=== PATIENT | female | born 1945 | race Caucasian/White ===

== ENCOUNTER → 2016-07-27 | Outpatient (CLI) | payer OTHER | LOC: CIMAGING 13:02 | PROVIDERS: ATTEND Family Medicine | DX: R92.0 Mammographic microcalcification found on diagnostic imaging of breast (principal) | CPT/HCPCS: G0206 ==

== ENCOUNTER 2016-11-18 20:20 | Inpatient (IN) | payer OTHER ==
[2016-11-18 20:47] LABS: % IMMATURE GRANULYOCYTES 0.3 % (0.0-1.1); ABSOLUTE IMMATURE GRANULOCYTES 0.05 10^3/uL (0.00-0.10); ADD DIFF? NO; ADD MORPH? NO; ADD SCAN? NO; ATYPICAL LYMPHOCYTE FLAG 0 (0-99); FRAGMENT RBC FLAG 0 (0-99); HEMATOCRIT 41.3 % (38.0-47.0); HEMOGLOBIN 13.9 g/dL (12.6-16.3); LEFT SHIFT FLG 0 (0-99); LIPEMIA HEMOLYSIS FLAG 80 (0-99); MEAN CELL HEMOGLOBIN 30.3 pg (27.9-34.1); MEAN CELL HEMOGLOBIN CONCENTR. 33.7 g/dL (32.4-36.7); MEAN PLATELET VOLUME 9.7 fL (8.7-11.7); PLATELET CLUMPS FLAG 0 (0-99); PLATELET COUNT 293 10^3/uL (150-400); RED BLOOD CELL COUNT 4.59 10^6/uL (4.18-5.33); RED CELL DISTRIBUTION WIDTH 15.1 % (11.5-15.2)
[2016-11-18 20:58] LABS: PROTIME(PATIENT) 12.9 SEC (12.0-15.0)
[2016-11-18 21:04] LABS: APTT 27.1 SEC (23.0-38.0)
[2016-11-18 21:15] LABS: ANION GAP 14 mEq/L (8-16); CARBON DIOXIDE 20 mEq/l (22-31); CHLORIDE 106 mEq/L (97-110); CREATININE 0.9 mg/dL (0.6-1.0); GLOMERULAR FILTRATION RATE > 60; GLUCOSE 111 mg/dL (70-100); POTASSIUM 4.4 mEq/L (3.5-5.2); SODIUM 140 mEq/L (134-144)
[2016-11-18] MEDS ORDERED: PANTOPRAZOLE SODIUM 80 MG in NS 100 ML IV ONE (21:22)
--- NOTE | 2016-11-18 21:40 | EDPHY ---
H & P Stated Complaint: RECTAL BLEEDING/ABD PAIN Time Seen by Provider: 11/18/16 20:28 HPI/ROS: CHIEF COMPLAINT: Bright red blood per rectum History by patient HISTORY OF PRESENT ILLNESS: 71-year-old woman with history of arthritis and valvular heart disease presents complaining of bright red blood per rectum times 24 hours. Patient states that 3 and 4 days ago she had 2 episodes of black tarry stools. These resolved so she did not seek medical attention. However in the past 24 hours she 1st developed bloody diarrhea but now is passing nothing but lea blood. She denies any dizziness or syncope. She has had no chest pain or shortness of breath with this. She does have some crampy abdominal pain when she has the bowel movements and some mild left lower quadrant pain. She has never had anything like this before. She does take frequent Excedrin for her arthritis. REVIEW OF SYSTEMS: As in HPI, and all other systems reviewed and are negative Source: Patient - Personal History Current Tetanus/Diphtheria Vaccine: Yes - Medical/Surgical History Hx Asthma: No Hx Chronic Respiratory Disease: No Hx Diabetes: No Hx Cardiac Disease: No Hx Renal Disease: No Hx Cirrhosis: No Hx Alcoholism: No Hx HIV/AIDS: No Hx Splenectomy or Spleen Trauma: No Other PMH: THYROID, CHOLESTEROL, SKIN CA. PSH: CALVIN KNEE, APPY, ORTH-FEET - Family History Significant Family History: No pertinent family hx - Social History Smoking Status: Former smoker - Physical Exam Exam: General Appearance: Alert, comfortable, well appearing. Eyes: Pupils equal and round no pallor or injection. ENT, Mouth: Mucous membranes moist. Respiratory: Normal, effort, lungs are clear to auscultation. No wheezes, rales or rhonchi. Cardiovascular: Regular rate and rhythm. S1, S2, no murmurs, gallops or rubs appreciated Gastrointestinal: Abdomen is soft and nontender, no masses, bowel sounds normal. Rectal: Positive bright red blood in vault, no tenderness Back: No CVA tenderness, no bony tenderness Neurological: Awake, alert and oriented x 3, no pronator drift, normal gait, no pronator drift Skin: Warm and dry, no rashes. Musculoskeletal: No deformities or tenderness. Extremitie:s full range of motion, no edema Psychiatric: Patient has normal affect, there is no agitation. Constitutional: Initial Vital Signs Temperature (C) 36.5 C 11/18/16 20:25 Heart Rate 89 11/18/16 20:25 Respiratory Rate 16 11/18/16 20:25 Blood Pressure 151/74 H 11/18/16 20:25 O2 Sat (%) 94 11/18/16 20:25 O2 Delivery Mode Room Air Allergies/Adverse Reactions: acetaminophen [From Percocet] Allergy (Verified 11/18/16 20:40) codeine [Codeine] Allergy (Verified 11/18/16 20:40) oxycodone [From Percocet] Allergy (Verified 11/18/16 20:40) Home Medications: Medication Instructions Recorded Levothyroxine [Synthroid 25 mcg 25 mcg PO DAILY 11/06/11 (RX)] Rosuvastatin Calcium 11/18/16 Medical Decision Making ED Course/Re-evaluation: 71-year-old woman presents with GI bleeding and with concern for both upper and lower given her recent episode of melena and now prior red blood per rectum. Patient is hemodynamically stable. She was placed on a playground monitor in 2 peripheral IVs were placed. She was given a dose of IV proton pump inhibitor. Initial hemoglobin is within normal limits. I discussed the case with Dr. Burdick on-call hospitalist at [facility] and the patient will be transferred for further evaluation and treatment. I discussed this plan with the patient and her understand and are agreeable to this plan. - Data Points Laboratory Results: Laboratory Results 11/18/16 20:40 11/18/16 20:40 11/18/16 11/18/16 11/18/16 20:40 20:40 20:40 WBC 14.67 10^3/uL H 10^3/uL (3.80-9.50) RBC 4.59 10^6/uL 10^6/uL (4.18-5.33) Hgb 13.9 g/dL g/dL (12.6-16.3) Hct 41.3 % % (38.0-47.0) MCV 90.0 fL fL (81.5-99.8) MCH 30.3 pg pg (27.9-34.1) MCHC 33.7 g/dL g/dL (32.4-36.7) RDW 15.1 % % (11.5-15.2) Plt Count 293 10^3/uL 10^3/uL (150-400) MPV 9.7 fL fL (8.7-11.7) Neut % (Auto) 74.2 % % (39.3-74.2) Lymph % (Auto) 16.2 % % (15.0-45.0) [place] % (Auto) 7.7 % % (4.5-13.0) Eos % (Auto) 1.2 % % (0.6-7.6) Baso % (Auto) 0.4 % % (0.3-1.7) Nucleat RBC Rel Count 0.0 % % (0.0-0.2) Absolute Neuts (auto) 10.88 10^3/uL H 10^3/uL (1.70-6.50) Absolute Lymphs (auto) 2.37 10^3/uL 10^3/uL (1.00-3.00) Absolute Monos (auto) 1.13 10^3/uL H 10^3/uL (0.30-0.80) Absolute Eos (auto) 0.18 10^3/uL 10^3/uL (0.03-0.40) Absolute Basos (auto) 0.06 10^3/uL 10^3/uL (0.02-0.10) Absolute Nucleated RBC 0.00 10^3/uL 10^3/uL (0-0.01) Immature Gran % 0.3 % % (0.0-1.1) Immature Gran # 0.05 10^3/uL 10^3/uL (0.00-0.10) PT 12.9 SEC SEC (12.0-15.0) INR 1.00 (0.83-1.16) APTT 27.1 SEC SEC (23.0-38.0) Sodium 140 mEq/L mEq/L (134-144) Potassium 4.4 mEq/L mEq/L (3.5-5.2) Chloride 106 mEq/L mEq/L (97-110) Carbon Dioxide 20 mEq/l L mEq/l (22-31) Anion Gap 14 mEq/L mEq/L (8-16) BUN 19 mg/dL mg/dL (7-23) Creatinine 0.9 mg/dL mg/dL (0.6-1.0) Estimated GFR > 60 Glucose 111 mg/dL H mg/dL (70-100) Calcium 9.0 mg/dL mg/dL (8.5-10.4) Medications Given: Pantoprazole Sodium 80 mg/ (Sodium Chloride) 100 mls @ 200 mls/hr IV ONCE ONE Stop: 11/18/16 21:51 Last Admin: 11/18/16 21:33 Dose: 100 mls Departure - Departure Disposition: [facility] Inpatient Acute Clinical Impression: GI bleed Qualifiers: GI bleed type/associated pathology: unspecified gastrointestinal hemorrhage type Qualified Code(s): K92.2 - Gastrointestinal hemorrhage, unspecified Condition: Fair Referrals: Caitlyn Goins MD [Primary Care Provider] - As per Instructions
--- NOTE | 2016-11-18 22:10 | PDGENHP ---
History and Physical - Chief Complaint BRBPR - History of Present Illness 71 yo F w/ hx of hypothyroid, hyperlipidemia, and OA presents to ED with abnormal BMs. Patient states she first noted black, tarry stools a few days prior to admission. Over the last 24 hours, she then began to notice bright red blood per rectum. She describes this as many drops of blood in the toilet bowl, but not a very significant amount. She has also been having lower abdominal cramping, worse in the LLQ. She takes 6 Excedrins daily for relief of OA symptoms. She does have some fatigue but denies dizziness, lightheadedness, syncope. History Information - Allergies/Home Medication List Allergies/Adverse Reactions: acetaminophen [From Percocet] Allergy (Verified 11/18/16 20:40) codeine [Codeine] Allergy (Verified 11/18/16 20:40) oxycodone [From Percocet] Allergy (Verified 11/18/16 20:40) Home Medications: Levothyroxine [Synthroid 25 mcg (RX)] 25 mcg PO DAILY 11/06/11 [Last Taken Unknown] Rosuvastatin Calcium 11/18/16 [Last Taken Unknown] I have personally reviewed and updated: family history, medical history - Past Medical History arthritis Additional medical history: Hypothyroid - Surgical History Reports: no pertinent surgical hx - Family History Positive for: CAD - Social History Smoking Status: Former smoker Drug Use: None Review of Systems Review of Systems: ROS: 10pt was reviewed & negative except for what was stated in HPI & below Physical Exam Physical Exam: Temp Pulse Resp BP Pulse Ox 36.9 C 72 16 122/61 H 94 11/18/16 21:55 11/18/16 21:55 11/18/16 21:55 11/18/16 21:55 11/18/16 21:55 Constitutional: no apparent distress, appears nourished Eyes: PERRL, EOMI Ears, Nose, Mouth, Throat: moist mucous membranes, no oral mucosal ulcers Cardiovascular: regular rate and rhythym, no murmur, rub, or gallop Respiratory: no respiratory distress, clear to auscultation Gastrointestinal: normoactive bowel sounds, tenderness (Mild, LLQ), No guarding , No rebound, No distension Skin: warm, no rashes or abrasions Musculoskeletal: full muscle strength, no muscle tenderness Neurologic: AAOx3, CN II-XII Intact Psychiatric: interacting appropriately, not anxious Lab Data & Imaging Review 11/18/16 20:40 11/18/16 20:40 WBC 14.67 10^3/uL (3.80-9.50) H 11/18/16 20:40 RBC 4.59 10^6/uL (4.18-5.33) 11/18/16 20:40 Hgb 13.9 g/dL (12.6-16.3) 11/18/16 20:40 Hct 41.3 % (38.0-47.0) 11/18/16 20:40 MCV 90.0 fL (81.5-99.8) 11/18/16 20:40 MCH 30.3 pg (27.9-34.1) 11/18/16 20:40 MCHC 33.7 g/dL (32.4-36.7) 11/18/16 20:40 RDW 15.1 % (11.5-15.2) 11/18/16 20:40 Plt Count 293 10^3/uL (150-400) 11/18/16 20:40 MPV 9.7 fL (8.7-11.7) 11/18/16 20:40 Neut % (Auto) 74.2 % (39.3-74.2) 11/18/16 20:40 Lymph % (Auto) 16.2 % (15.0-45.0) 11/18/16 20:40 [place] % (Auto) 7.7 % (4.5-13.0) 11/18/16 20:40 Eos % (Auto) 1.2 % (0.6-7.6) 11/18/16 20:40 Baso % (Auto) 0.4 % (0.3-1.7) 11/18/16 20:40 Nucleat RBC Rel Count 0.0 % (0.0-0.2) 11/18/16 20:40 Absolute Neuts (auto) 10.88 10^3/uL (1.70-6.50) H 11/18/16 20:40 Absolute Lymphs (auto) 2.37 10^3/uL (1.00-3.00) 11/18/16 20:40 Absolute Monos (auto) 1.13 10^3/uL (0.30-0.80) H 11/18/16 20:40 Absolute Eos (auto) 0.18 10^3/uL (0.03-0.40) 11/18/16 20:40 Absolute Basos (auto) 0.06 10^3/uL (0.02-0.10) 11/18/16 20:40 Absolute Nucleated RBC 0.00 10^3/uL (0-0.01) 11/18/16 20:40 Immature Gran % 0.3 % (0.0-1.1) 11/18/16 20:40 Immature Gran # 0.05 10^3/uL (0.00-0.10) 11/18/16 20:40 PT 12.9 SEC (12.0-15.0) 11/18/16 20:40 INR 1.00 (0.83-1.16) 11/18/16 20:40 APTT 27.1 SEC (23.0-38.0) 11/18/16 20:40 Sodium 140 mEq/L (134-144) 11/18/16 20:40 Potassium 4.4 mEq/L (3.5-5.2) 11/18/16 20:40 Chloride 106 mEq/L (97-110) 11/18/16 20:40 Carbon Dioxide 20 mEq/l (22-31) L 11/18/16 20:40 Anion Gap 14 mEq/L (8-16) 11/18/16 20:40 BUN 19 mg/dL (7-23) 11/18/16 20:40 Creatinine 0.9 mg/dL (0.6-1.0) 11/18/16 20:40 Estimated GFR > 60 11/18/16 20:40 Glucose 111 mg/dL (70-100) H 11/18/16 20:40 Calcium 9.0 mg/dL (8.5-10.4) 11/18/16 20:40 Assessment & Plan Assessment: 71 yo F w/ OA and hypothyroid presents with bright red blood per rectum after 2 days of melena. Plan: 1. GIB - Most likely upper GIB noting initial symptoms were 2 days of melena. NSAID induced would be most likely noting 1.5g of aspirin consumption daily ( 250 mg x6). LLQ and BRBPR also brings up possibility of diverticulosis or other lower GI pathology. Overall seems mild noting patient asymptomatic, hemodynamically stable, and without anemia. - Maintain NPO, monitor CBC - Will consult GI to decide if needs EGD or EGD/[place] 2. Leukocytosis - Likely reactive from above, no signs or symptoms of infection. Continue to monitor. 3. Hypothyroid - Continue LTX Diet - NPO Code - Full Ppx - SCDs Dispo - Admit to OBS; suspect will need <2 MN.
[2016-11-19] MEDS ORDERED: ONDANSETRON 4 MG/2 ML VIAL IVP PRN ×2 (00:04→11:10)
[2016-11-19] MEDS ORDERED: oxyCODONE IR 5 MG TAB PO PRN (00:04)
[2016-11-19] MEDS ORDERED: ONDANSETRON DISINTEGRATING 4 MG TAB PO PRN (00:04)
[2016-11-19] MEDS ORDERED: PEG 3350/NA SULF,BICARB,CL/KCL (GAVILYTE-G) 4000 ML BTL PO ONE ×2 (04:00→16:00)
[2016-11-19 05:26] LABS: % IMMATURE GRANULYOCYTES 0.5 % (0.0-1.1); ABSOLUTE IMMATURE GRANULOCYTES 0.07 10^3/uL (0.00-0.10); ADD DIFF? NO; ADD MORPH? NO; ADD SCAN? NO; ATYPICAL LYMPHOCYTE FLAG 0 (0-99); FRAGMENT RBC FLAG 0 (0-99); HEMATOCRIT 40.8 % (38.0-47.0); HEMOGLOBIN 13.4 g/dL (12.6-16.3); LEFT SHIFT FLG 0 (0-99); LIPEMIA HEMOLYSIS FLAG 80 (0-99); MEAN CELL HEMOGLOBIN 30.5 pg (27.9-34.1); MEAN CELL HEMOGLOBIN CONCENTR. 32.8 g/dL (32.4-36.7); MEAN CELL VOLUME 92.7 fL (81.5-99.8); MEAN PLATELET VOLUME 9.6 fL (8.7-11.7); PLATELET CLUMPS FLAG 0 (0-99); PLATELET COUNT 257 10^3/uL (150-400); RED CELL DISTRIBUTION WIDTH 15.3 % (11.5-15.2)
[2016-11-19 05:36] LABS: ANION GAP 10 mEq/L (8-16); CARBON DIOXIDE 22 mEq/l (22-31); CHLORIDE 106 mEq/L (97-110); CREATININE 0.9 mg/dL (0.6-1.0); GLOMERULAR FILTRATION RATE > 60; GLUCOSE 80 mg/dL (70-100); POTASSIUM 4.1 mEq/L (3.5-5.2); SODIUM 138 mEq/L (134-144)
--- NOTE | 2016-11-19 09:19 | ASMTCMCOM ---
CM Note CM Note Notes: 71 yeqr old female admitted for GI bleed, LLQ pain. She has a Hx of Hypothyroid, HLD, OA and was taking 6 Excedrines/day for pain. Case Management to follow for discharge needs. Date Signed: 11/19/2016 09:18 AM Electronically Signed By:Gena Samaniego
[2016-11-19] MEDS: PANTOPRAZOLE SODIUM 40 MG in NS 100 ML IV SCH ×2 (09:44→22:10)
[2016-11-19] MEDS ORDERED: fentaNYL 100 MCG/2 ML INJ ONE (10:53)
[2016-11-19] MEDS ORDERED: MIDAZOLAM 2 MG/2 ML VIAL ONE (10:53)
[2016-11-19] MEDS ORDERED: PROPOFOL/EMULSION 500 MG/50 ML BOTTLE IV ONE (10:54)
[2016-11-19] MEDS ORDERED: LIDOCAINE 2% 100 MG/5 ML SYR ONE (10:54)
--- NOTE | 2016-11-19 11:02 | PDANEPAE ---
ANE Past Medical History - Pulmonary History Hx Oxygen in Use at Home: No Hx Sleep Apnea: No Sleep Apnea Screening Result - Last Documented: Negative - Endocrine History Hx Diabetes: No - Chronic Pain History Chronic Pain: No ANE Review of Systems Review of Systems: ANE Patient History - Allergies Allergies/Adverse Reactions: oxycodone [From Percocet] Allergy (Severe, Verified 11/19/16 00:43) Hives codeine [Codeine] Allergy (Verified 11/18/16 20:40) - Home Medications Home Medications: C/E/Zn/Cu/OM3/DHA/EPA/LUT/ZEAX [Preservision Areds 2 Softgel] 1 each PO HS 11/19 [Last Taken 11/17/16] Herbals/Supplements -Info Only 1 ea PO DAILY 11/19/16 [Last Taken Unknown] Levothyroxine [Synthroid 50 mcg (*)] 50 mcg PO HS 11/19/16 [Last Taken 11/17/16] Multivitamins [Multivitamin (*)] 1 each PO HS 11/19/16 [Last Taken 11/17/16] [place]-3 Fatty Acids [Fish Oil 1000 mg (*)] 2,000 mg PO DAILY 11/19/16 [Last Taken 11/17/16] Omeprazole Magnesium [Prilosec Otc] 20 mg PO DAILY 11/19/16 [Last Taken 11/17/16 ] Rosuvastatin Calcium [Crestor 20mg (*)] 20 mg PO HS 11/19/16 [Last Taken ] - NPO status NPO Since - Liquids (Date): 11/18/16 NPO Since - Liquids (Time): 00:00 NPO Since - Solids (Date): 11/18/16 NPO Since - Solids (Time): 08:00 - Smoking Hx Smoking Status: Former smoker ANE Labs/Vital Signs - Labs Result Diagrams: 11/19/16 05:17 11/19/16 05:16 - Vital Signs Blood Pressure: 122/62 Heart Rate: 77 Respiratory Rate: 16 O2 Sat (%): 99 Height: 149.86 cm Weight: 59.6 kg ANE Physical Exam - Airway Neck exam: FROM Mallampati Score: Class 1 Mouth exam: normal dental/mouth exam - Pulmonary Pulmonary: no respiratory distress - Cardiovascular Cardiovascular: regular rate and rhythym - ASA Status ASA Status: I ANE Anesthesia Plan Total IV Anesthesia: Yes Urgent/Emergent Case: Anes eval completed preop but documented later for safe timely pt care
[2016-11-19] MEDS ORDERED: NALOXONE HCL 0.4 MG/ML INJ IVP PRN (11:10)
--- NOTE | 2016-11-19 11:10 | POSTANESTH ---
Post Anesthetic Evaluation Cardiovascular Status: Normal, Stable Respiratory Status: Normal, Stable Level of Consciousness/Mental Status: Can Participate in Eval Pain Control: Adequate, Prn Tx Ordered Nausea/Vomiting Control: Adequate, Prn Tx Ordered Complications Possibly Related to Anesthesia: None Noted
--- NOTE | 2016-11-19 11:45 | GCON ---
[f rep st] CONSULTATION CHIEF COMPLAINT: A 71-year-old woman with melena and hematochezia. HISTORY OF PRESENT ILLNESS: I have been asked to see this patient in consultation by Dr. Aguilar for G I bleeding. This 71-year-old woman has a history of hypothyroidism and hyperlipidemia, as well as os teoarthritis. She had presented to the emergency room with complaint of a several-day history of katja enic stool. She started having crampy abdominal pain and passed some more maroonish bright red blood per rectum. She is also having crampy abdominal pain, left-sided more than right. She had no fever s or chills. She had no lightheadedness or syncopal episodes. She has had no prior history of ulcer disease. She does take frequent aspirin for osteoarthritis. She does take omeprazole 20 mg over-th e-counter. She has had a previous colonoscopy about 10 years ago which was reported to be normal. S he has no family historyof colorectal cancer or colon polyps. She was admitted to the hospital with a normal hemoglobin of 13.9 and hematocrit 41.3. Serum chemistries revealed a normal BUN of 19 with a creatinine of 0.9. The patient still complains of abdominal discomfort, but has not had any rectal bleeding since admission. PAST MEDICAL HISTORY: Marked for hypothyroidism, hyperlipidemia, osteoarthritis. She had previous b ilateral knee replacement, previous foot surgery. She reports history of a heart murmur. She has quintero d a previous appendectomy, vinicius placement in her right hip. HOME MEDICATIONS: [place]-3, fish oil, omeprazole 20 mg a day, multivitamins, Crestor 20 mg a daily, l evothyroxine 50 mcg daily. ALLERGIES: Percocet and codeine. FAMILY HISTORY: Remarkable for coronary artery disease, diabetes mellitus. REVIEW OF SYSTEMS: Negative for 10 systems other than as in HPI. PHYSICAL EXAM: VITAL SIGNS: 122/62, heart rate of 74, 96% sat on room air, 36.9, respiratory rate 1 5. GENERAL: Very pleasant woman in no acute distress. HEENT: Normocephalic, atraumatic. EOMI. N JOANA: Supple. No cervical adenopathy. No thyromegaly. Mucous membranes moist. LUNGS: Clear. CAR DIAC: Normal S1, S2 without significant murmur. ABDOMEN: Soft, benign. Tenderness in the left abd omen to palpation. EXTREMITIES: Without clubbing, cyanosis, edema. SKIN: Warm, dry, intact. NEUR O: Nonfocal. Cranial nerves 2 through 12 intact. PSYCH: Alert and oriented x3. Normal affect. M USCULOSKELETAL: Full strength. No muscle tenderness. LABORATORY DATA: Hemoglobin 13.9, hematocrit 41.3. White count 14.6. Serum sodium of 140, potassiu m of 4.4, chloride 106, CO2 20, BUN of 19, creatinine 0.9, blood sugar of 111. IMPRESSION: A 71-year-old woman with history of osteoarthritis, frequent nonsteroidal anti-inflammat ory drugs use. Patient with a several-day history of melena and now some more maroonish bright red b lood per patient's history. The patient is hemodynamically stable without significant drop in hemato crit. RECOMMENDATIONS: The patient admitted to the hospital n.p.o. IV Protonix 40 mg q.12. Proceed with diagnostic endoscopy to evaluate for significant gastritis, peptic ulcer disease. Pending the result s of the upper endoscopy, if no significant upper GI source of bleeding identified, may need to consi adilene colonoscopy. We will follow with you while she is in the hospital. Thank you for allowing me to participate in the care of this patient. /[id number]/MODL
--- NOTE | 2016-11-19 12:40 | GPN ---
[f rep st] PROCEDURE NOTE PROCEDURE: Esophagogastroduodenoscopy with biopsy. PREOPERATIVE DIAGNOSES: 1. Melena. 2. Abdominal pain. 3. Hematochezia. POSTOPERATIVE DIAGNOSES: 1. Dispersed antral erosions with gastritis, mild bulbar narrowing. 2. No evidence of any significant active bleeding or active ulceration. INDICATIONS: A 71-year-old woman with a history of osteoarthritis, takes frequent NSAIDs on a daily basis, but also does take omeprazole 20 mg daily. She has had a several-day history of melenic stool with associated abdominal pain. She also passed some maroonish stool. She has been hemodynamically stable without drop in hematocrit. She has had previous colonoscopy about 10 years ago. The patien t presents now for upper endoscopy to rule out significant upper GI bleed. PHYSICAL EXAMINATION: VITAL SIGNS: Stable. LUNGS: Clear. CARDIAC: Normal S1, S2, without murmur. PERMIT: The procedure was explained to the patient. The risks and benefits of the procedure outline d to the patient. Informed consent was obtained. PREOPERATIVE MEDICATIONS: Per Anesthesia/propofol. FINDINGS OF PROCEDURE: The patient was placed in the left lateral decubitus position. GIF-180 video scope was passed in the oropharynx under direct visualization to the proximal esophagus. Esophagus was normal. Endoscope was passed in the stomach. There was no evidence of any retained blood in the stomach. In the antrum, there was evidence of mild gastritis and pre-pyloric erosions. Endoscope w as passed to the first and second portion of the duodenum. The second portion of the duodenum was no rmal. In the bulb, there was some bulbar narrowing consistent with some mild stenosis from possible ulcer disease. Endoscope was brought back in the stomach. Retroflex to the stomach revealed a mekhi l angularis, fundus, and cardia. Endoscope was un-retroflexed. Biopsies were taken from the antrum and body for H pylori. Endoscope was withdrawn. IMPRESSION: Suspect NSAID-induced erosions in the antrum and pre-pylorus area. Bulbar narrowing con sistent with prior ulcer disease or NSAID-induced inflammation resulting in narrowing of the duodenal bulb. RECOMMENDATIONS: Clear liquid diet. The patient was still with the complaint of abdominal pain and had some episode of hematochezia. Would recommend colonoscopy for further complete evaluation of GI bleeding. Clear liquid diet. Prep with 2-4 L of GoLYTELY. N.p.o. after midnight. Proceed with dori gnostic colonoscopy tomorrow. Thank you letting me participate in the care of this patient. /[id number]/DONNL
--- NOTE | 2016-11-19 12:58 | HOSPPROG ---
Hospitalist Progress Note Assessment/Plan: #Acute GIB: -EGD showed erosions or antrum/pre-pyloric likely from NSAIDs. PPI. H pylori pending -H/H, BP stable #Hematochezia: colonoscopy in morning #Hypothyroidism: LT4 #Diet: clears, NPO MN #DVT ppx: SCDs #Disp: warrants inpt admission with acute GIB, serial CBC, scope in morning Subjective: no melena today. No dizziness Objective: Vital Signs Temp Pulse Resp BP Pulse Ox 36.2 C 72 17 120/50 L 97 11/19/16 11:46 11/19/16 11:46 11/19/16 11:46 11/19/16 11:46 11/19/16 11:46 Laboratory Results 11/19/16 05:17 11/19/16 05:16 11/18/16 11/19/16 11/20/16 05:59 05:59 05:59 Intake Total 300 200 Output Total 0 Balance 300 200 PT 12.9 SEC (12.0-15.0) 11/18/16 20:40 INR 1.00 (0.83-1.16) 11/18/16 20:40 ICD10 Worksheet Patient Problems: Problems Problem Status Onset GI bleed Acute
[2016-11-19] MEDS: ACETAMINOPHEN 325 MG TAB PO PRN (19:50)
[2016-11-19] MEDS ORDERED: PRESERVISION AREDS2 FORMULA EYE VIT 1 EACH PO SCH (21:00)
[2016-11-19] MEDS ORDERED: ROSUVASTATIN CALCIUM 20 MG TAB PO SCH (21:00)
[2016-11-19] MEDS ORDERED: MULTIVITAMINS 1 EACH TAB PO SCH (21:00)
[2016-11-19] MEDS ORDERED: LEVOTHYROXINE 50 MCG TAB PO SCH (21:00)
[2016-11-20 04:56] LABS: HEMATOCRIT 35.3 % (38.0-47.0); HEMOGLOBIN 11.7 g/dL (12.6-16.3); MEAN CELL HEMOGLOBIN 30.5 pg (27.9-34.1); MEAN CELL HEMOGLOBIN CONCENTR. 33.1 g/dL (32.4-36.7); MEAN CELL VOLUME 91.9 fL (81.5-99.8); RED BLOOD CELL COUNT 3.84 10^6/uL (4.18-5.33)
[2016-11-20 05:12] LABS: ANION GAP 8 mEq/L (8-16); CALCIUM 8.5 mg/dL (8.5-10.4); CARBON DIOXIDE 24 mEq/l (22-31); CHLORIDE 106 mEq/L (97-110); CREATININE 0.7 mg/dL (0.6-1.0); GLOMERULAR FILTRATION RATE > 60; GLUCOSE 78 mg/dL (70-100); POTASSIUM 3.7 mEq/L (3.5-5.2); SODIUM 138 mEq/L (134-144)
[2016-11-20] MEDS: ACETAMINOPHEN 325 MG TAB PO PRN (08:02)
[2016-11-20] MEDS ORDERED: OMEGA-3 FATTY ACIDS 1,000 MG CAP PO SCH (09:00)
[2016-11-20] MEDS ORDERED: NON-FORMULARY NEW DRUG (Omeprazole Magnesium [Prilosec Otc] 20 MG) PO SCH (09:00)
[2016-11-20] MEDS ORDERED: Herbals/Supplements -Info Only PO SCH (09:00)
[2016-11-20] MEDS ORDERED: PANTOPRAZOLE SODIUM 40 MG TAB PO SCH (09:00)
[2016-11-20] MEDS ORDERED: LR 1,000 ML IV ONE (12:23)
--- NOTE | 2016-11-20 12:53 | PDANEPAE ---
ANE History of Present Illness 71 year old female w/ recent acute GI bleed w/ hematochezia presents for colonoscopy. ANE Past Medical History - Cardiovascular History Hx Hypertension: No Hx Arrhythmias: No Hx Chest Pain: No Hx Coronary Artery / Peripheral Vascular Disease: No Hx CHF / Valvular Disease: No Hx Palpitations: No - Pulmonary History Hx COPD: No Hx Asthma/Reactive Airway Disease: No Hx Recent Upper Respiratory Infection: No Hx Oxygen in Use at Home: No Hx Sleep Apnea: No Sleep Apnea Screening Result - Last Documented: Negative - Endocrine History Hx Diabetes: No Hypothyroid: Yes Hyperthyroid: No Obesity: no - Renal History Hx Renal Disorders: No - Liver History Hx Hepatic Disorders: No - Neurological & Psychiatric Hx Hx Neurological and Psychiatric Disorders: No - GI History Hx Gastrointestinal Disorders: Yes - Chronic Pain History Chronic Pain: No ANE Review of Systems Review of Systems: - Exercise capacity Exercise capacity: >=4 METS ANE Patient History - Allergies Allergies/Adverse Reactions: oxycodone [From Percocet] Allergy (Severe, Verified 11/19/16 00:43) Hives codeine [Codeine] Allergy (Verified 11/18/16 20:40) - Home Medications Home medications: home medication list seen and reviewed Home Medications: C/E/Zn/Cu/OM3/DHA/EPA/LUT/ZEAX [Preservision Areds 2 Softgel] 1 each PO HS 11/19 [Last Taken 11/17/16] Levothyroxine [Synthroid 50 mcg (*)] 50 mcg PO HS 11/19/16 [Last Taken 11/17/16] Multivitamins [Multivitamin (*)] 1 each PO HS 11/19/16 [Last Taken 11/17/16] [place]-3 Fatty Acids [Fish Oil 1000 mg (*)] 2,000 mg PO DAILY 11/19/16 [Last Taken 11/17/16] Omeprazole Magnesium [Prilosec Otc] 20 mg PO DAILY 11/19/16 [Last Taken 11/17/16 ] RX: Herbals/Supplements -Info Only 1 ea PO DAILY 11/19/16 [Last Taken Unknown] Rosuvastatin Calcium [Crestor 20mg (*)] 20 mg PO HS 11/19/16 [Last Taken ] - NPO status NPO Status: no food or drink >8 hours NPO Since - Liquids (Date): 11/20/16 NPO Since - Liquids (Time): 11:30 NPO Since - Solids (Date): 11/18/16 NPO Since - Solids (Time): 18:00 - Anes Hx Anes Hx: no prior problems - Smoking Hx Smoking Status: Former smoker ANE Labs/Vital Signs - Labs Result Diagrams: 11/20/16 04:43 11/20/16 04:43 - Vital Signs Vital Signs: reviewed preoperatively; see RN documention for details Blood Pressure: 138/67 Heart Rate: 78 Respiratory Rate: 16 O2 Sat (%): 97 Height: 149.86 cm Weight: 59.6 kg ANE Physical Exam - Airway Neck exam: FROM Mallampati Score: Class 1 Mouth exam: normal dental/mouth exam - Pulmonary Pulmonary: no respiratory distress - Cardiovascular Cardiovascular: regular rate and rhythym - ASA Status ASA Status: II ANE Anesthesia Plan Anesthesia Plan: GA with mask Total IV Anesthesia: Yes
[2016-11-20] MEDS ORDERED: PROPOFOL/EMULSION 500 MG/50 ML BOTTLE IV ONE (13:15)
[2016-11-20] MEDS ORDERED: fentaNYL 100 MCG/2 ML INJ IVP PRN (13:29)
[2016-11-20] MEDS ORDERED: LR 500 ML IV PRN (13:29)
[2016-11-20] MEDS ORDERED: NALOXONE HCL 0.4 MG/ML INJ IVP PRN (13:29)
[2016-11-20] MEDS ORDERED: ONDANSETRON 4 MG/2 ML VIAL IVP PRN (13:29)
[2016-11-20] MEDS ORDERED: ONDANSETRON 4 MG/2 ML VIAL ONE ×2 (13:32→14:24)
--- NOTE | 2016-11-20 13:56 | GIREPORT ---
[facility] - Endoscopy Department Patient Name: Gena Ramirez Procedure Date: 11/20/2016 1:09 PM Patient Type: Outpatient Attending / DAGOBERTO Physician: Jacoby Longoria MD Procedure: Colonoscopy Indications: Abdominal pain in the left lower quadrant, Hematochezia, Melena Providers: Jacoby Longoria MD Medicines: Sedation Administered by an Anesthesia Professional, Monitored Anesthesia Care Complications: No immediate complications. Findings: Multiple small and large-mouthed diverticula were found in the sigmoid colon. A segmental area of moderately congested, erythematous, inflamed and ulcerated mucosa was found from sigmoid to descending colon. Biopsies were taken with a cold forceps for histology. No additional abnormalities were found on retroflexion. Estimated Blood Loss: Estimated blood loss: none. Post Op Diagnosis: - Diverticulosis in the sigmoid colon. - Congested, erythematous, inflamed and ulcerated mucosa from sigmoid to descending colon. Biopsied. - Left-sided ischemic colitis. Biopsied. Recommendation: - Advance diet as tolerated. - Await pathology results. - Repeat colonoscopy in 10 years for screening purposes. - Thank you for allowing me to parcitpate in this patients care. Attending Participation: I personally performed the entire procedure. Jacoby Longoria MD Jacoby Longoria MD 11/20/2016 1:56:03 PM Number of Addenda: 0 Note Initiated On: 11/20/2016 1:09 PM Total Procedure Duration Time 0 hours 21 minutes 41 seconds [email or web address]
--- NOTE | 2016-11-20 14:03 | POSTANESTH ---
Post Anesthetic Evaluation Cardiovascular Status: Normal, Stable, Similar to Pre-Op Cond Respiratory Status: Normal, Stable, Similar to Pre-op Cond. Level of Consciousness/Mental Status: Can Participate in Eval, Alert and Oriented Pain Control: Adequate, Prn Tx Ordered Nausea/Vomiting Control: Adequate, Prn Tx Ordered Complications Possibly Related to Anesthesia: None Noted
[2016-11-20] MEDS: PANTOPRAZOLE SODIUM 40 MG in NS 100 ML IV SCH (14:49)
[2016-11-20 14:53] VITALS: RESP 16
[2016-11-20 15:38] VITALS: BP 124/84; PULSE 83; TEMP 98.4; O2SAT 91
--- NOTE | 2016-11-21 02:41 | GDS ---
[f rep st] DISCHARGE SUMMARY DISCHARGE DIAGNOSES: 1. Acute blood loss anemia. 2. Hematochezia. 3. Acute gastrointestinal bleed. 4. Hypothyroidism. PROCEDURES: 1. EGD 11/19/2016: NSAID-induced erosions in the antrum and pre-pylorus area. 2. Colonoscopy 11/20/2016: Diverticulosis in the sigmoid colon. Congested erythematous inflamed an d ulcerated mucosa from the sigmoid to the descending colon biopsied. Left-sided ischemic colitis bi opsied. HISTORY OF PRESENT ILLNESS: A 71-year-old female with history of arthritis, hypothyroidism, hyperlip idemia, presenting with abnormal bowel movements. She noted some black tarry stool a few days prior to admission. Over the 24 hours prior to admission, she noticed bright red blood per rectum. She de scribed as many drops of blood in the toilet bowl but not a significant amount. She has been having abdominal cramping, worse in the left lower quadrant. She takes 6-8 Excedrin a day for relief of her arthritis symptoms. She denies dizziness, chest pain, lightheadedness, or loss of consciousness. HOSPITAL COURSE BY PROBLEM: 1. Acute GI bleed: Patient underwent endoscopy showing left-sided ischemic colitis, and EGD showed antral and pre pylorus erosions secondary to NSAIDs. Both these areas were biopsied. She remained h emodynamically stable. H and H were stable while here. She is to resume PPI. She was advised to av oid NSAIDs. She is to follow up with her PCP for biopsy results. If H pylori, will need triple ther apy. 2. Acute blood loss anemia: Again, secondary to above. H and H remained stable, as well as blood p ressure. 3. OA: Patient was advised to take Tylenol or she can speak with her PCP about other options such a s a Lidoderm patch. No NSAIDs. 4. Hypothyroidism: Levothyroxine. DISPOSITION: Patient is stable for discharge. FOLLOWUP: 1. Her PCP. 2. Biopsies pending. PHYSICAL EXAMINATION: VITAL SIGNS: At time of discharge, temperature 36.9, blood pressure 124/84, h eart rate 80s, respiration 91, 99% on room air. GENERAL: Patient is well appearing, lying in bed, i n no acute distress. HEENT: PERRLA. EOMI. Oropharynx clear. CV: Regular rate and rhythm. No mu rmurs, gallops, or rubs. LUNGS: Clear to auscultation bilaterally. ABDOMEN: Soft, nontender. Mil d left lower quadrant tenderness. No rebound or guarding. : No Gomes. MUSCULOSKELETAL: 5/5 upp er and lower extremity strength. NEURO: 2 through 12 intact. /[id number]/MODL
--- NOTE | 2016-11-21 16:26 | ASDISCHSUM ---
Discharge Information Plan Status:Home with No Needs Medically Cleared to Leave:11/20/2016 Discharge Date:11/20/2016 04:24 PM CM D/C Disposition:Home, Routine, Self-Care ADT D/C Disposition:Home, Routine, Self-Care Projected Discharge Date:11/20/2016 12:00 AM Transportation at D/C: Discharge Delay Reason: Follow-Up Date:11/20/2016 12:00 AM Discharge Slot: Final Diagnosis: Placement Information Patient Contact Information Contact Name:NYLA Relationship: [address] [facility] [place] Alternate Phone: State/Zip Code:[place] [address] Email: Financial Information Financial Class: Primary Plan Desc:MEDICARE INPATIENT Primary Plan Number:[id number] Secondary Plan Desc:[employer]AS[employer] PPO Secondary Plan Number:[id number] Assessment Information [facility] CM Progress Note CM Note CM Note Notes: 71 yeqr old female admitted for GI bleed, LLQ pain. She has a Hx of Hypothyroid, HLD, OA and was taking 6 Excedrines/day for pain. Case Management to follow for discharge needs. Date Signed: 11/19/2016 09:18 AM Electronically Signed By:Gena Samaniego LCSW Intervention Information Intervention Type:JIM-Signed Date of Service:11/19/2016 09:25 AM Patient Type:Observation Staff Member:Sherlyn Arredondo Hours: Discipline: Severity: Comment:
== END 2016-11-20 16:24 | disposition home or self-care (01) | DRG 378 ==
LOC: CED 20:20 → CEDHOLD 21:19 → F2N 23:30 → OBSVTOIN 11-19 16:53 → F3E 11-19 18:01
PROVIDERS: ADMIT Family Medicine; ATTEND Family Medicine
PROC: 0DB68ZX Excision of Stomach, Via Natural or Artificial Opening Endoscopic, Diagnostic (ICD-10-PCS; principal; 2016-11-19 10:45)
PROC: 0DBM8ZX Excision of Descending Colon, Via Natural or Artificial Opening Endoscopic, Diagnostic (ICD-10-PCS; 2016-11-20)
DX: K29.71 Gastritis, unspecified, with bleeding (principal); D62 Acute posthemorrhagic anemia; T39.315A Adverse effect of propionic acid derivatives, initial encounter; K55.9 Vascular disorder of intestine, unspecified; Z79.1 Long term (current) use of non-steroidal anti-inflammatories (NSAID); E03.9 Hypothyroidism, unspecified; K57.33 Diverticulitis of large intestine without perforation or abscess with bleeding; M19.90 Unspecified osteoarthritis, unspecified site
CPT/HCPCS: 80048-PO; 85025-PO; 85610-PO; 85730-PO; 96365; J2001; J2250; J2405; J2704; J3010

== ENCOUNTER → 2017-07-29 | Outpatient (CLI) | payer OTHER | LOC: CIMAGING 07:30 | PROVIDERS: ATTEND Family Medicine | DX: Z12.31 Encounter for screening mammogram for malignant neoplasm of breast (principal) ==

== ENCOUNTER → 2018-06-16 | Outpatient (CLI) | payer OTHER | LOC: CIMAGING 14:36 | PROVIDERS: ATTEND Orthopaedic Surgery | DX: M25.562 Pain in left knee (principal); Z96.652 Presence of left artificial knee joint | CPT/HCPCS: 73562-PO ==

== ENCOUNTER → 2018-08-14 | Outpatient (CLI) | payer OTHER | LOC: CIMAGING 07:48 ==